=== PATIENT | male | born 2000 ===

== ENCOUNTER 2020-01-09 13:42 | Observation (INO) | payer SELFPAY ==
[2020-01-09] MEDS ORDERED: Sodium Chloride 0.9% 1,000 ML IV ONE ×2 (13:51→16:00)
[2020-01-09] MEDS ORDERED: Ondansetron 4 MG/2 ML SDV IVPUSH ONE (13:51)
--- NOTE | 2020-01-09 13:53 | EDM.PDOC ---
ED HPI GENERAL MEDICAL PROBLEM - General Chief Complaint: General Stated Complaint: vomiting, stiff neck Time Seen by Provider: 01/09/20 13:51 Source of Information: Reports: Patient History Limitations: Reports: No Limitations - History of Present Illness INITIAL COMMENTS - FREE TEXT/NARRATIVE: Ill since . Vomiting, no diarrhea. Unable to keep PO down. Weak. Slept on floor of bathroom last night. Whole body aches, including sore head/ neck. Unable to touch chin to chest. Father is worried about meningitis. Has been working despite his illness. Visiting/on work Visa from [facility]. head and neck Pain Score (Numeric/FACES): 11 - Related Data Allergies Allergy/AdvReac Type Severity Reaction Status Date / Time No Known Allergies Allergy Verified 01/09/20 13:47 Home Meds: Home Meds . [Unable to Verify Home Med List] 01/09/20 [History] Past Medical History Respiratory History: Reports: Asthma Social & Family History - Tobacco Use Tobacco Use Comment: Very rare cigarette smoker/socially - Caffeine Use Caffeine Use: Reports: Coffee - Alcohol Use Alcohol Use History: No - Recreational Drug Use Recreational Drug Use: No Drug Use in Last 12 Months: No ED ROS GENERAL - Review of Systems Review Of Systems: See Below Constitutional: Reports: Malaise, Weakness, Fatigue, Decreased Appetite. Denies : Fever, Night Sweats HEENT: Reports: No Symptoms Respiratory: Reports: No Symptoms Cardiovascular: Reports: No Symptoms GI/Abdominal: Reports: Decreased Appetite, Nausea, Vomiting. Denies: Abdominal Pain, Constipation, Diarrhea, Difficulty Swallowing, Distension, Hematemesis, Hematochezia : Reports: No Symptoms Musculoskeletal: Reports: Neck Pain, Muscle Pain (aches all over), Muscle Stiffness (neck). Denies: Joint Swelling Skin: Reports: No Symptoms Neurological: Reports: Headache. Denies: Confusion, Dizziness, Numbness, Paresthesia, Syncope, Tingling, Trouble Speaking, Difficulty Walking, Change in Speech, Gait Disturbance Psychiatric: Reports: No Symptoms Hematologic/Lymphatic: Reports: No Symptoms ED EXAM, GENERAL - Physical Exam Exam: See Below Exam Limited By: No Limitations General Appearance: Alert, WD/WN, No Apparent Distress, Other (appears fatigued) Eye Exam: Bilateral Eye: EOMI, PERRL Ears: Hearing Grossly Normal Nose: No: Nasal Deformity, Nasal Swelling, Nasal Drainage Throat/Mouth: Normal Lips, Normal Voice, No Airway Compromise Head: Atraumatic, Normocephalic Neck: Non-Tender, Other (able to turn head to either side, unable to tilt chin downward due to neck stiffness (bilaterally)/discomfort.). No: Lymphadenopathy (L), Lymphadenopathy (R) Respiratory/Chest: No Respiratory Distress, Lungs Clear, Normal Breath Sounds, No Accessory Muscle Use, Chest Non-Tender Cardiovascular: Normal Peripheral Pulses, Regular Rate, Rhythm, No Edema, No Murmur Peripheral Pulses: 2+: Radial (L), Radial (R) GI/Abdominal: Soft, Non-Tender, No Distention, Abnormal Bowel Sounds (decreased throughout) (Male) Exam: Deferred Rectal (Males) Exam: Deferred Back Exam: No: CVA Tenderness (L), CVA Tenderness (R), Muscle Spasm, Paraspinal Tenderness, Vertebral Tenderness Extremities: Normal Range of Motion, No Pedal Edema, Slow Capillary Refill (4 seconds). No: Joint Swelling, Increased Warmth, Mottled, Pallor, Redness Neurological: Alert, Oriented, CN II-XII Intact, Normal Cognition, Normal Gait, No Motor/Sensory Deficits Psychiatric: Normal Affect, Normal Mood Skin Exam: Warm, Dry, Intact, Normal Color Course - Vital Signs Last Recorded V/S: Last Vital Signs Temp 36.6 C 01/09/20 13:43 Pulse 80 01/09/20 13:43 Resp 18 01/09/20 13:43 BP 126/67 01/09/20 13:43 Pulse Ox 97 01/09/20 13:43 - Orders/Labs/Meds Orders: Active Orders 24 hr Category Date Time Status Sodium Chloride 0.9% [Saline Flush] Med 01/09/20 13:51 Ordered 10 ml FLUSH ASDIRECTED PRN Saline Lock Insert [OM.PC] Routine Oth 01/09/20 13:51 Ordered Medication Orders Sodium Chloride (Saline Flush) 10 ml FLUSH ASDIRECTED PRN PRN Reason: Keep Vein Open Last Admin: 01/09/20 14:24 Dose: 10 ml Labs: Laboratory Tests 01/09/20 01/09/20 01/09/20 Range/Units 14:20 14:20 14:20 WBC 5.5 (4.0-10.2) K/uL RBC 5.24 (4.33-5.41) M/uL Hgb 15.8 (13.1-16.8) g/dL Hct 45.8 (39.0-49.0) % MCV 87.4 (84.0-98.0) fL MCH 30.2 (28.2-33.3) pg MCHC 34.5 (31.7-36.0) g/dL RDW 12.9 (11.2-14.1) % Plt Count 251 (150-350) K/uL Neut % (Auto) 46.5 (45.0-80.0) % Lymph % (Auto) 36.2 (10.0-50.0) % [place] % (Auto) 13.2 (2.0-14.0) % Eos % (Auto) 3.6 (0.0-5.0) % Baso % (Auto) 0.5 (0.0-2.0) % Neut # (Auto) 2.57 (1.40-7.00) K/uL Lymph # (Auto) 2.00 (0.50-3.50) K/uL [place] # (Auto) 0.73 (0.00-1.00) K/uL Eos # (Auto) 0.20 (0.00-0.50) K/uL Baso # (Auto) 0.03 (0.00-0.20) K/uL Sodium 141 (136-145) mmol/L Potassium 3.9 (3.5-5.1) mmol/L Chloride 103 (98-107) mmol/L Carbon Dioxide 27.9 (21.0-32.0) mmol/L BUN 10 (7-18) mg/dL Creatinine 0.80 (0.51-1.17) mg/dL Est Cr Clr Drug Dosing 179.33 mL/min Estimated GFR (MDRD) > 60 mL/min Glucose 96 (74-106) mg/dL Lactic Acid (0.4-2.0) mmol/L Calcium 9.3 (8.5-10.1) mg/dL Magnesium 1.7 L (1.8-2.4) mg/dL Total Bilirubin 0.5 (0.2-1.0) mg/dL AST 24 (15-37) U/L ALT 36 (12-78) U/L Alkaline Phosphatase 99 (46-116) IU/L Total Protein 7.7 (6.4-8.2) g/dL Albumin 4.2 (3.4-5.0) g/dL Specimen Type Urinblad Urine Color Yellow Urine Appearance Clear Urine pH 6.0 (5.0-9.0) Ur Specific [place] 1.020 (1.005-1.030) Urine Protein 30 H (NEGATIVE) mg/dL Urine Glucose (UA) Negative (NEGATIVE) mg/dL Urine Ketones Trace H (NEGATIVE) mg/dL Urine Occult Blood Negative (NEGATIVE) Urine Nitrite Negative (NEGATIVE) Urine Bilirubin Moderate H (NEGATIVE) Urine Urobilinogen 0.2 (0.2-1.0) E.U./dL Ur Leukocyte Esterase Negative (NEGATIVE) Urine RBC Not seen /HPF Urine WBC Not seen /HPF Ur Epithelial Cells Rare /LPF Urine Bacteria Rare (NONE TO FEW) /HPF Urine Mucus Many H (NEGATIVE) /LPF Urine Yeast Few H (NEGATIVE) /HPF 01/09/20 Range/Units 14:20 WBC (4.0-10.2) K/uL RBC (4.33-5.41) M/uL Hgb (13.1-16.8) g/dL Hct (39.0-49.0) % MCV (84.0-98.0) fL MCH (28.2-33.3) pg MCHC (31.7-36.0) g/dL RDW (11.2-14.1) % Plt Count (150-350) K/uL Neut % (Auto) (45.0-80.0) % Lymph % (Auto) (10.0-50.0) % [place] % (Auto) (2.0-14.0) % Eos % (Auto) (0.0-5.0) % Baso % (Auto) (0.0-2.0) % Neut # (Auto) (1.40-7.00) K/uL Lymph # (Auto) (0.50-3.50) K/uL [place] # (Auto) (0.00-1.00) K/uL Eos # (Auto) (0.00-0.50) K/uL Baso # (Auto) (0.00-0.20) K/uL Sodium (136-145) mmol/L Potassium (3.5-5.1) mmol/L Chloride (98-107) mmol/L Carbon Dioxide (21.0-32.0) mmol/L BUN (7-18) mg/dL Creatinine (0.51-1.17) mg/dL Est Cr Clr Drug Dosing mL/min Estimated GFR (MDRD) mL/min Glucose (74-106) mg/dL Lactic Acid 1.2 (0.4-2.0) mmol/L Calcium (8.5-10.1) mg/dL Magnesium (1.8-2.4) mg/dL Total Bilirubin (0.2-1.0) mg/dL AST (15-37) U/L ALT (12-78) U/L Alkaline Phosphatase (46-116) IU/L Total Protein (6.4-8.2) g/dL Albumin (3.4-5.0) g/dL Specimen Type Urine Color Urine Appearance Urine pH (5.0-9.0) Ur Specific [place] (1.005-1.030) Urine Protein (NEGATIVE) mg/dL Urine Glucose (UA) (NEGATIVE) mg/dL Urine Ketones (NEGATIVE) mg/dL Urine Occult Blood (NEGATIVE) Urine Nitrite (NEGATIVE) Urine Bilirubin (NEGATIVE) Urine Urobilinogen (0.2-1.0) E.U./dL Ur Leukocyte Esterase (NEGATIVE) Urine RBC /HPF Urine WBC /HPF Ur Epithelial Cells /LPF Urine Bacteria (NONE TO FEW) /HPF Urine Mucus (NEGATIVE) /LPF Urine Yeast (NEGATIVE) /HPF Meds: Medications Generic Name Dose Route Start Last Admin Trade Name Freq PRN Reason Stop Dose Admin Sodium Chloride 10 ml 01/09/20 13:51 01/09/20 14:24 Saline Flush FLUSH 10 ml ASDIRECTED PRN Administration Keep Vein Open Discontinued Medications Generic Name Dose Route Start Last Admin Trade Name Freq PRN Reason Stop Dose Admin Sodium Chloride 1,000 mls @ 999 mls/hr 01/09/20 13:51 01/09/20 14:24 Normal Saline IV 01/09/20 14:51 999 mls/hr .BOLUS ONE Administration Ketorolac Tromethamine 30 mg 01/09/20 14:34 01/09/20 14:38 Toradol IVPUSH 01/09/20 14:35 30 mg ONETIME ONE Administration Ondansetron HCl 4 mg 01/09/20 13:51 01/09/20 14:24 Zofran IVPUSH 01/09/20 13:52 4 mg ONETIME ONE Administration - Re-Assessments/Exams Free Text/Narrative Re-Assessment/Exam: Discussed patient's neck stiffness with from [facility]. Given lack of fever/lack of white count elevation/normal lactic acid does not appear to be consistent with bacterial meningitis. Overall labs unremarkable except for low Mg. Patient is dehydrated by exam. Will admit for IV hydration and continued observation given the neck stiffness and continued emesis. Departure - Departure Time of Disposition: 14:51 Disposition: Refer to Observation Condition: Good Clinical Impression: Dehydration, Gastroenteritis, Hypomagnesemia - Discharge Information *PRESCRIPTION DRUG MONITORING PROGRAM REVIEWED*: Not Applicable *COPY OF PRESCRIPTION DRUG MONITORING REPORT IN PATIENT CAREY: Not Applicable Forms: ED Department Discharge Sepsis Event Note - Evaluation Sepsis Screening Result: No Definite Risk - Focused Exam Vital Signs: Vital Signs Temp Pulse Resp BP Pulse Ox 01/09/20 13:43 36.6 C 80 18 126/67 97 Date Exam was Performed: 01/09/20 Time Exam was Performed: 14:51 - Problem List & Annotations (1) Dehydration SNOMED Code(s): 68469435 Code(s): E86.0 - DEHYDRATION Status: Acute Priority: High Current Visit : Yes Onset Date: ~01/09/20 Annotation/Comment:: 3 day history of emesis. Unable to keep fluid/food down. Delayed capillary refill. Admit for IV rehydration. (2) Gastroenteritis SNOMED Code(s): 43178758 Code(s): K52.9 - NONINFECTIVE GASTROENTERITIS AND COLITIS, UNSPECIFIED Status: Acute Priority: High Current Visit: Yes Onset Date: 01/07/20 Annotation/Comment:: Unable to keep fluid/food down well over last three days. Dehydrated. No one else sick at work. No bowel changes. Normal WBC. Admit OBS for IV fluid/Zofran. (3) Hypomagnesemia SNOMED Code(s): 253214555 Code(s): E83.42 - HYPOMAGNESEMIA Status: Acute Priority: Medium Current Visit: Yes Annotation/Comment:: Uncertain if acute or chronic. Will give supplementary Mag and recheck level in AM. (4) Stiff neck SNOMED Code(s): 327377731 Code(s): M43.6 - TORTICOLLIS Status: Acute Priority: Medium Current Visit: Yes Annotation/Comment:: Patient unable to touch chin to chest due to stiff neck. Afebrile. Normal WBC. Normal lactic acid. Interacts normally, no acute neuro changes. Discussed with at [facility]. Does not appear consistent with bacterial meningitis. Will admit observation and continue to observe for changes. (5) Asthma SNOMED Code(s): 978856654 Code(s): J45.909 - UNSPECIFIED ASTHMA, UNCOMPLICATED Status: Chronic Priority: Low Current Visit: No Annotation/Comment:: Under good control at this time Qualifiers: Asthma severity: mild Asthma complication type: uncomplicated - Problem List Review Problem List Initiated/Reviewed/Updated: Yes - My Orders Last 24 Hours: My Active Orders 01/09/20 13:51 Sodium Chloride 0.9% [Saline Flush] 10 ml FLUSH ASDIRECTED PRN Saline Lock Insert [OM.PC] Routine - Assessment/Plan Admission H&P: Please use this note as an admission H&P Last 24 Hours: My Active Orders 01/09/20 13:51 Sodium Chloride 0.9% [Saline Flush] 10 ml FLUSH ASDIRECTED PRN Saline Lock Insert [OM.PC] Routine Assessment:: as above Plan: IV hydration, Zofran. Continue to observe for changes and re-evaluate neck stiffness complaint over stay. Does not appear consistent with bacterial meningitis but if worsens may need lumbar puncture to formally rule out possibility. If this is consistent with viral gastroenteritis and patient improves well with rehydration anticipate 1-2 day stay as Observation patient. Patient stable and suitable for general supervision.
[2020-01-09] MEDS: Sodium Chloride 0.9% 10 ML Syringe FLUSH PRN ×2 (14:24→18:11)
[2020-01-09] MEDS ORDERED: Ketorolac 30 MG/ML SDV IVPUSH ONE (14:34)
[2020-01-09 14:40] LABS: CHLORIDE,CL 103 mmol/L (98-107); SODIUM,NA 141 mmol/L (136-145)
[2020-01-09] MEDS ORDERED: Ondansetron 4 MG/2 ML SDV IVPUSH PRN (15:08)
[2020-01-09] MEDS ORDERED: Ketorolac 30 MG/ML SDV IM PRN (15:08)
[2020-01-09] MEDS ORDERED: Ketorolac 30 MG/ML SDV IVPUSH PRN (15:12)
[2020-01-09] MEDS ORDERED: Diazepam 5 MG Tab PO ONE (15:14)
[2020-01-09] MEDS: Sodium Chloride 0.9% 1,000 ML IV SCH (17:02)
[2020-01-09] MEDS ORDERED: Morphine 2 MG/ML Syringe IVPUSH PRN (17:49)
[2020-01-10] MEDS: Sodium Chloride 0.9% 1,000 ML IV SCH ×5 (00:07→20:03)
[2020-01-10] MEDS ORDERED: Diazepam 5 MG Tab PO ONE (06:00)
[2020-01-10 07:53] LABS: CHLORIDE,CL 107 mmol/L (98-107); SODIUM,NA 142 mmol/L (136-145)
[2020-01-10] MEDS: Sodium Chloride 0.9% 10 ML Syringe FLUSH PRN (09:24)
[2020-01-10] MEDS ORDERED: Sodium Chloride 0.9% 1,000 ML IV ONE ×2 (11:01→13:43)
--- NOTE | 2020-01-10 11:41 | PCM.PN ---
- General Info Date of Service: 01/10/20 Admission Dx/Problem (Free Text): Patient admitted for treatment of dehydration, emesis, and headache. Subjective Update: Patient still has headache but can now lay flat comfortably. Emesis resolved on Zofran. Feels hungry. Diet advanced today and was able to eat regular diet. Functional Status: Reports: Tolerating Diet, Ambulating, Urinating. Denies: New Symptoms Pain Score: 7 (Patient does not currently wish to have any additional pain medication at time of rounding) - Review of Systems General: Reports: Fatigue, Malaise, Appetite (good). Denies: Fever, Chills, Night Sweats HEENT: Reports: Headaches. Denies: Dysphasia, Ear Pain, Eye Pain, Sinus Congestion, Sore Throat, Rhinitis, Visual Changes Pulmonary: Reports: No Symptoms Cardiovascular: Reports: No Symptoms Gastrointestinal: Reports: No Symptoms, Other (nausea/emesis improved with Zofran) Genitourinary: Reports: No Symptoms Musculoskeletal: Reports: Neck Pain, Other (diffuse body aches) Skin: Reports: No Symptoms. Denies: Rash Neurological: Reports: Headache. Denies: Confusion, Numbness, Paresthesia, Seizure, Syncope, Tingling, Tremors, Trouble Speaking, Difficulty Walking, Weakness, Change in Speech, Gait Disturbance Psychiatric: Reports: No Symptoms - Patient Data Vitals - Most Recent: Last Vital Signs Temp 36.4 C 01/10/20 11:04 Pulse 60 01/10/20 11:04 Resp 18 01/10/20 11:04 BP 101/51 L 01/10/20 11:04 Pulse Ox 98 01/10/20 11:04 Weight - Most Recent: 102.058 kg I&O - Last 24 Hours: Intake & Output 01/09/20 01/10/20 01/10/20 22:59 06:59 14:59 Intake Total 2512 2200 720 Output Total 700 Balance 2512 1500 720 Lab Results Last 24 Hours: Laboratory Results - last 24 hr 01/09/20 01/09/20 01/09/20 Range/Units 14:20 14:20 14:20 WBC 5.5 (4.0-10.2) K/uL RBC 5.24 (4.33-5.41) M/uL Hgb 15.8 (13.1-16.8) g/dL Hct 45.8 (39.0-49.0) % MCV 87.4 (84.0-98.0) fL MCH 30.2 (28.2-33.3) pg MCHC 34.5 (31.7-36.0) g/dL RDW 12.9 (11.2-14.1) % Plt Count 251 (150-350) K/uL Neut % (Auto) 46.5 (45.0-80.0) % Lymph % (Auto) 36.2 (10.0-50.0) % [place] % (Auto) 13.2 (2.0-14.0) % Eos % (Auto) 3.6 (0.0-5.0) % Baso % (Auto) 0.5 (0.0-2.0) % Neut # (Auto) 2.57 (1.40-7.00) K/uL Lymph # (Auto) 2.00 (0.50-3.50) K/uL [place] # (Auto) 0.73 (0.00-1.00) K/uL Eos # (Auto) 0.20 (0.00-0.50) K/uL Baso # (Auto) 0.03 (0.00-0.20) K/uL Sodium 141 (136-145) mmol/L Potassium 3.9 (3.5-5.1) mmol/L Chloride 103 (98-107) mmol/L Carbon Dioxide 27.9 (21.0-32.0) mmol/L BUN 10 (7-18) mg/dL Creatinine 0.80 (0.51-1.17) mg/dL Est Cr Clr Drug Dosing 179.33 mL/min Estimated GFR (MDRD) > 60 mL/min Glucose 96 (74-106) mg/dL Lactic Acid (0.4-2.0) mmol/L Calcium 9.3 (8.5-10.1) mg/dL Magnesium 1.7 L (1.8-2.4) mg/dL Total Bilirubin 0.5 (0.2-1.0) mg/dL AST 24 (15-37) U/L ALT 36 (12-78) U/L Alkaline Phosphatase 99 (46-116) IU/L Total Protein 7.7 (6.4-8.2) g/dL Albumin 4.2 (3.4-5.0) g/dL Specimen Type Urinblad Urine Color Yellow Urine Appearance Clear Urine pH 6.0 (5.0-9.0) Ur Specific [place] 1.020 (1.005-1.030) Urine Protein 30 H (NEGATIVE) mg/dL Urine Glucose (UA) Negative (NEGATIVE) mg/dL Urine Ketones Trace H (NEGATIVE) mg/dL Urine Occult Blood Negative (NEGATIVE) Urine Nitrite Negative (NEGATIVE) Urine Bilirubin Moderate H (NEGATIVE) Urine Urobilinogen 0.2 (0.2-1.0) E.U./dL Ur Leukocyte Esterase Negative (NEGATIVE) Urine RBC Not seen /HPF Urine WBC Not seen /HPF Ur Epithelial Cells Rare /LPF Urine Bacteria Rare (NONE TO FEW) /HPF Urine Mucus Many H (NEGATIVE) /LPF Urine Yeast Few H (NEGATIVE) /HPF 01/09/20 01/10/20 01/10/20 Range/Units 14:20 07:25 07:25 WBC (4.0-10.2) K/uL RBC (4.33-5.41) M/uL Hgb (13.1-16.8) g/dL Hct (39.0-49.0) % MCV (84.0-98.0) fL MCH (28.2-33.3) pg MCHC (31.7-36.0) g/dL RDW (11.2-14.1) % Plt Count (150-350) K/uL Neut % (Auto) (45.0-80.0) % Lymph % (Auto) (10.0-50.0) % [place] % (Auto) (2.0-14.0) % Eos % (Auto) (0.0-5.0) % Baso % (Auto) (0.0-2.0) % Neut # (Auto) (1.40-7.00) K/uL Lymph # (Auto) (0.50-3.50) K/uL [place] # (Auto) (0.00-1.00) K/uL Eos # (Auto) (0.00-0.50) K/uL Baso # (Auto) (0.00-0.20) K/uL Sodium 142 (136-145) mmol/L Potassium 4.4 (3.5-5.1) mmol/L Chloride 107 (98-107) mmol/L Carbon Dioxide 27.4 (21.0-32.0) mmol/L BUN 12 (7-18) mg/dL Creatinine 0.77 (0.51-1.17) mg/dL Est Cr Clr Drug Dosing 186.31 mL/min Estimated GFR (MDRD) > 60 mL/min Glucose 118 H (74-106) mg/dL Lactic Acid 1.2 1.2 (0.4-2.0) mmol/L Calcium 8.3 L (8.5-10.1) mg/dL Magnesium 2.0 (1.8-2.4) mg/dL Total Bilirubin (0.2-1.0) mg/dL AST (15-37) U/L ALT (12-78) U/L Alkaline Phosphatase (46-116) IU/L Total Protein (6.4-8.2) g/dL Albumin (3.4-5.0) g/dL Specimen Type Urine Color Urine Appearance Urine pH (5.0-9.0) Ur Specific [place] (1.005-1.030) Urine Protein (NEGATIVE) mg/dL Urine Glucose (UA) (NEGATIVE) mg/dL Urine Ketones (NEGATIVE) mg/dL Urine Occult Blood (NEGATIVE) Urine Nitrite (NEGATIVE) Urine Bilirubin (NEGATIVE) Urine Urobilinogen (0.2-1.0) E.U./dL Ur Leukocyte Esterase (NEGATIVE) Urine RBC /HPF Urine WBC /HPF Ur Epithelial Cells /LPF Urine Bacteria (NONE TO FEW) /HPF Urine Mucus (NEGATIVE) /LPF Urine Yeast (NEGATIVE) /HPF 01/10/20 Range/Units 07:25 WBC 4.4 (4.0-10.2) K/uL RBC 4.52 (4.33-5.41) M/uL Hgb 13.4 D (13.1-16.8) g/dL Hct 41.2 (39.0-49.0) % MCV 91.2 D (84.0-98.0) fL MCH 29.6 (28.2-33.3) pg MCHC 32.5 (31.7-36.0) g/dL RDW 13.1 (11.2-14.1) % Plt Count 188 (150-350) K/uL Neut % (Auto) 45.4 (45.0-80.0) % Lymph % (Auto) 37.2 (10.0-50.0) % [place] % (Auto) 10.8 (2.0-14.0) % Eos % (Auto) 6.1 H (0.0-5.0) % Baso % (Auto) 0.5 (0.0-2.0) % Neut # (Auto) 2.02 (1.40-7.00) K/uL Lymph # (Auto) 1.65 (0.50-3.50) K/uL [place] # (Auto) 0.48 (0.00-1.00) K/uL Eos # (Auto) 0.27 (0.00-0.50) K/uL Baso # (Auto) 0.02 (0.00-0.20) K/uL Sodium (136-145) mmol/L Potassium (3.5-5.1) mmol/L Chloride (98-107) mmol/L Carbon Dioxide (21.0-32.0) mmol/L BUN (7-18) mg/dL Creatinine (0.51-1.17) mg/dL Est Cr Clr Drug Dosing mL/min Estimated GFR (MDRD) mL/min Glucose (74-106) mg/dL Lactic Acid (0.4-2.0) mmol/L Calcium (8.5-10.1) mg/dL Magnesium (1.8-2.4) mg/dL Total Bilirubin (0.2-1.0) mg/dL AST (15-37) U/L ALT (12-78) U/L Alkaline Phosphatase (46-116) IU/L Total Protein (6.4-8.2) g/dL Albumin (3.4-5.0) g/dL Specimen Type Urine Color Urine Appearance Urine pH (5.0-9.0) Ur Specific [place] (1.005-1.030) Urine Protein (NEGATIVE) mg/dL Urine Glucose (UA) (NEGATIVE) mg/dL Urine Ketones (NEGATIVE) mg/dL Urine Occult Blood (NEGATIVE) Urine Nitrite (NEGATIVE) Urine Bilirubin (NEGATIVE) Urine Urobilinogen (0.2-1.0) E.U./dL Ur Leukocyte Esterase (NEGATIVE) Urine RBC /HPF Urine WBC /HPF Ur Epithelial Cells /LPF Urine Bacteria (NONE TO FEW) /HPF Urine Mucus (NEGATIVE) /LPF Urine Yeast (NEGATIVE) /HPF Med Orders - Current: Current Medications Sodium Chloride (Normal Saline) 1,000 mls @ 150 mls/hr IV ASDIRECTED TABITHA Last Admin: 01/10/20 06:09 Dose: 150 mls/hr Sodium Chloride (Normal Saline) 1,000 mls @ 999 mls/hr IV .BOLUS ONE Stop: 01/10/20 12:01 Last Admin: 01/10/20 11:24 Dose: 999 mls/hr Ketorolac Tromethamine (Toradol) 30 mg IVPUSH Q6H PRN PRN Reason: Pain (moderate 4-6) Last Admin: 01/10/20 06:13 Dose: 30 mg Morphine Sulfate (Morphine) 2 mg IVPUSH Q2H PRN PRN Reason: Pain Last Admin: 01/10/20 09:23 Dose: 2 mg Ondansetron HCl (Zofran) 4 mg IVPUSH Q6H PRN PRN Reason: Nausea/Vomiting Sodium Chloride (Saline Flush) 10 ml FLUSH ASDIRECTED PRN PRN Reason: Keep Vein Open Last Admin: 01/10/20 09:24 Dose: 10 ml Discontinued Medications Diazepam (Valium.) 5 mg PO ONETIME ONE Stop: 01/09/20 15:15 Last Admin: 01/09/20 15:52 Dose: 5 mg Diazepam (Valium.) 5 mg PO ONETIME ONE Stop: 01/10/20 06:01 Last Admin: 01/10/20 06:13 Dose: 5 mg Sodium Chloride (Normal Saline) 1,000 mls @ 999 mls/hr IV .BOLUS ONE Stop: 01/09/20 14:51 Last Admin: 01/09/20 14:24 Dose: 999 mls/hr Magnesium Sulfate/Dextrose 1 (gm/ Premix) 100 mls @ 100 mls/hr IV ONETIME ONE Stop: 01/09/20 16:09 Last Admin: 01/09/20 15:52 Dose: 100 mls/hr Sodium Chloride (Normal Saline) 1,000 mls @ 999 mls/hr IV .BOLUS ONE Stop: 01/09/20 17:00 Last Admin: 02/22/20 15:51 Dose: 999 mls/hr Magnesium Sulfate/Dextrose 1 (gm/ Premix) 100 mls @ 100 mls/hr IV ONETIME ONE Stop: 01/09/20 22:59 Last Admin: 01/09/20 22:06 Dose: 100 mls/hr Ketorolac Tromethamine (Toradol) 30 mg IVPUSH ONETIME ONE Stop: 01/09/20 14:35 Last Admin: 01/09/20 14:38 Dose: 30 mg Ketorolac Tromethamine (Toradol) 30 mg IM Q6H PRN PRN Reason: Pain (moderate 4-6) Morphine Sulfate (Morphine) 4 mg IVPUSH ONETIME ONE Stop: 01/09/20 17:48 Last Admin: 01/09/20 18:11 Dose: 4 mg Ondansetron HCl (Zofran) 4 mg IVPUSH ONETIME ONE Stop: 01/09/20 13:52 Last Admin: 01/09/20 14:24 Dose: 4 mg - Exam General: Alert, Oriented, Cooperative, No Acute Distress HEENT: Pupils Equal, Pupils Reactive, EOMI, Mucous Membr. Moist/[place] Neck: Supple Lungs: Clear to Auscultation, Normal Respiratory Effort Cardiovascular: Regular Rate, Regular Rhythm GI/Abdominal Exam: Normal Bowel Sounds, Soft, Non-Tender, No Distention (Male) Exam: Deferred Back Exam: Normal Inspection. No: CVA Tenderness (L), CVA Tenderness (R), Muscle Spasm, Paraspinal Tenderness, Vertebral Tenderness Extremities: Normal Range of Motion, No Pedal Edema, Other (cap refill 3 sec) Peripheral Pulses: 2+: Radial (L), Radial (R) Skin: Warm, Dry. No: Rash Neurological: No New Focal Deficit Psy/Mental Status: Alert, Normal Affect, Normal Mood Sepsis Event Note - Evaluation Sepsis Screening Result: No Definite Risk - Focused Exam Vital Signs: Vital Signs Temp Pulse Resp BP Pulse Ox 01/10/20 11:04 36.4 C 60 18 101/51 L 98 01/10/20 07:44 36.5 C 54 L 16 119/68 100 01/10/20 06:00 36.4 C 54 L 16 110/59 L 98 01/10/20 00:00 36.3 C 60 16 98/56 L 96 Date Exam was Performed: 01/10/20 Time Exam was Performed: 11:41 - Problem List & Annotations (1) Nausea & vomiting SNOMED Code(s): 85061587 Code(s): R11.2 - NAUSEA WITH VOMITING, UNSPECIFIED Status: Acute Priority : High Current Visit: Yes Onset Date: 01/07/20 Qualifiers: Vomiting type: unspecified Vomiting Intractability: non-intractable Qualified Code(s): R11.2 - Nausea with vomiting, unspecified Annotation/Comment:: Patient presented on day three of continued nausea/emesis. Unable to keep PO down. Accompanied by body aches/headache/neck pain. No bowel changes. No fevers. Normal WBC and lactic acid. Suspect viral etiology as being most likely cause however head CT ordered today to help rule out intracranial abnormalities. (2) Dehydration SNOMED Code(s): 21388177 Code(s): E86.0 - DEHYDRATION Status: Acute Priority: High Current Visit : Yes Onset Date: ~01/09/20 Annotation/Comment:: 3 day history of emesis. Unable to keep fluid/food down. Delayed capillary refill in ER. Admitted for IV rehydration. Has had only 700ml out since admission despite 2 liter bolus and ongoing fluids. Is taking PO fluids/food now. Will give additional IV fluids and monitor output. (3) Hypomagnesemia SNOMED Code(s): 228715189 Code(s): E83.42 - HYPOMAGNESEMIA Status: Acute Priority: Medium Current Visit: Yes Annotation/Comment:: Improved today. Will continue supplementation as IV fluids will dilute Mg level. (4) Stiff neck SNOMED Code(s): 506393792 Code(s): M43.6 - TORTICOLLIS Status: Acute Priority: High Current Visit : Yes Annotation/Comment:: Patient unable to touch chin to chest due to stiff and painful neck. Afebrile. Normal WBC. Normal lactic acid. Interacts normally, no acute neuro changes. Discussed with at [facility]. Does not appear consistent with bacterial meningitis. Headache/neck pain continues today. No acute changes noted. Will obtain CT scan to rule out intracranial changes that may be contributing to pain/emesis complaint. (5) Asthma SNOMED Code(s): 924476198 Code(s): J45.909 - UNSPECIFIED ASTHMA, UNCOMPLICATED Status: Chronic Priority: Low Current Visit: No Qualifiers: Asthma severity: mild Asthma complication type: uncomplicated Annotation/Comment:: Under good control at this time - Problem List Review Problem List Initiated/Reviewed/Updated: Yes - My Orders Last 24 Hours: My Active Orders 01/09/20 13:51 Sodium Chloride 0.9% [Saline Flush] 10 ml FLUSH ASDIRECTED PRN Saline Lock Insert [OM.PC] Routine 01/09/20 15:08 Patient Status [ADT] Routine Oxygen Therapy [RC] .PRN Up ad Sol [RC] ASDIRECTED VTE/DVT Education [RC] PER UNIT ROUTINE Vital Signs [RC] Q6HR Ondansetron [Zofran] 4 mg IVPUSH Q6H PRN Resuscitation Status Routine 01/09/20 15:09 Pulse Oximetry [RC] PRN 01/09/20 15:12 Ketorolac [Toradol] 30 mg IVPUSH Q6H PRN 01/09/20 15:13 Communication Order [RC] ROUTINE 01/09/20 17:49 Morphine 2 mg IVPUSH Q2H PRN 01/09/20 18:00 Sodium Chloride 0.9% [Normal Saline] 1,000 ml IV ASDIRECTED 01/10/20 11:01 Sodium Chloride 0.9% [Normal Saline] 1,000 ml IV .BOLUS 01/10/20 11:10 Head wo Cont [CT] Routine 01/10/20 Lunch Regular Diet [DIET] - Assessment Assessment:: as above. Presentation does not appear consistent with bacterial meningitis, however continued head/neck discomfort, exam, and workup suggestive of viral meningitis. - Plan Plan:: as above. CT of head to be performed. Continue IV fluids/pain management. Consult with [facility] depending on CT results. If CT results negative and patient improves over the next 24 hours consider discharge home with close follow up by clinic. to assume patient's care tonight.
--- NOTE | 2020-01-10 12:57 | PCM.SN ---
- Free Text/Narrative Note: Head CT unremarkable per Radiology. Recheck of patient shows improved ability to move neck, now can almost touch chin to chest. Posterior neck muscles bilaterally are sore. Palpation reproduces pain complaint. Continue rehydration and observe for additional changes.
[2020-01-10] MEDS ORDERED: predniSONE 20 MG Tab PO ONE (13:41)
[2020-01-10] MEDS ORDERED: Cyclobenzaprine 10 MG Tab PO ONE ×2 (13:42→23:00)
[2020-01-10] MEDS ORDERED: traMADol 50 MG Tab PO PRN (13:44)
[2020-01-10] MEDS ORDERED: Acetaminophen 500 MG Tab PO PRN (13:45)
--- NOTE | 2020-01-10 13:48 | PCM.SN ---
- Free Text/Narrative Note: Discussed patient and current treatment plan with , prn occupational therapist hospitalist from [facility]. She is in agreement with current plan and feels that patient's symptoms are consistent with viral etiology. If patient spikes fever/shows sudden worsening plan will be to send him to [facility] for further workup and lumbar puncture.
[2020-01-11] MEDS: Sodium Chloride 0.9% 1,000 ML IV SCH (02:45)
[2020-01-11 08:37] LABS: CHLORIDE,CL 107 mmol/L (98-107); SODIUM,NA 143 mmol/L (136-145)
--- NOTE | 2020-01-11 10:16 | PCM.DCSUM1 ---
Discharge Summary - Hospital Course Free Text/Narrative:: Pt was admitted initially with N/V/D Pt given antiemetics and IVF's Pt has progressed well Is able to tolerate diet currently No fever No abdominal pain Did have mild pain in his neck that has improved HPI Initial Comments: Pt admitted with N/V/D Diagnosis: Stroke: No - Discharge Data Discharge Date: 01/11/20 Discharge Disposition: Home, Self-Care 01 Condition: Good - Referral to Home Health Primary Care Physician: PCP None - Discharge Diagnosis/Problem(s) (1) Dehydration SNOMED Code(s): 36025489 ICD Code: E86.0 - DEHYDRATION Status: Acute Priority: High Current Visit: Yes Onset Date: ~01/09/20 Problem Details: 3 day history of emesis. Unable to keep fluid/food down. Delayed capillary refill in ER. Admitted for IV rehydration. Has had only 700ml out since admission despite 2 liter bolus and ongoing fluids. Is taking PO fluids/food now. Will give additional IV fluids and monitor output. (2) Nausea & vomiting SNOMED Code(s): 10302286 ICD Code: R11.2 - NAUSEA WITH VOMITING, UNSPECIFIED Status: Acute Priority: High Current Visit: Yes Onset Date: 01/07/20 Problem Details: Patient presented on day three of continued nausea/emesis. Unable to keep PO down. Accompanied by body aches/headache/neck pain. No bowel changes. No fevers. Normal WBC and lactic acid. Suspect viral etiology as being most likely cause however head CT ordered today to help rule out intracranial abnormalities. Qualifiers: Vomiting type: unspecified Vomiting Intractability: non-intractable Qualified Code(s): R11.2 - Nausea with vomiting, unspecified (3) Stiff neck SNOMED Code(s): 307037397 ICD Code: M43.6 - TORTICOLLIS Status: Acute Priority: High Current Visit: Yes Problem Details: Patient unable to touch chin to chest due to stiff and painful neck. Afebrile. Normal WBC. Normal lactic acid. Interacts normally, no acute neuro changes. Discussed with at [facility]. Does not appear consistent with bacterial meningitis. Headache/neck pain continues today. No acute changes noted. Will obtain CT scan to rule out intracranial changes that may be contributing to pain/emesis complaint. - Patient Summary/Data Hospital Course: Pt has progressed well Symptoms have improved Pt afebrile and able to tolerate regular diet - Patient Instructions Diet: Usual Diet as Tolerated Activity: As Tolerated Driving: May Drive Today Showering/Bathing: May Shower Notify Provider of: Fever, Increased Pain, Nausea and/or Vomiting - Discharge Plan *PRESCRIPTION DRUG MONITORING PROGRAM REVIEWED*: Not Applicable *COPY OF PRESCRIPTION DRUG MONITORING REPORT IN PATIENT CAREY: Not Applicable Home Medications: Home Meds . [Unable to Verify Home Med List] 01/09/20 [History] Forms: ED Department Discharge, ED Return to Work/School Form Referrals: PCP,None [Primary Care Provider] - - Discharge Summary/Plan Comment DC Time >30 min.: No - Patient Data Vitals - Most Recent: Last Vital Signs Temp 97.2 F 01/11/20 08:00 Pulse 64 01/11/20 08:00 Resp 17 01/11/20 08:00 BP 99/60 01/11/20 08:00 Pulse Ox 100 01/11/20 08:00 Weight - Most Recent: 225 lb I&O - Last 24 hours: Intake & Output 01/10/20 01/11/20 01/11/20 18:59 02:59 10:59 Intake Total 5599 2483 Output Total 1600 2700 1825 Balance 3999 -2700 658 Lab Results - Last 24 hrs: Laboratory Results - last 24 hr 01/11/20 01/11/20 Range/Units 07:35 07:35 WBC 10.5 H (4.0-10.2) K/uL RBC 4.90 (4.33-5.41) M/uL Hgb 14.6 (13.1-16.8) g/dL Hct 43.9 (39.0-49.0) % MCV 89.6 (84.0-98.0) fL MCH 29.8 (28.2-33.3) pg MCHC 33.3 (31.7-36.0) g/dL RDW 12.8 (11.2-14.1) % Plt Count 225 (150-350) K/uL Neut % (Auto) 76.3 (45.0-80.0) % Lymph % (Auto) 15.4 (10.0-50.0) % [place] % (Auto) 7.9 (2.0-14.0) % Eos % (Auto) 0.3 (0.0-5.0) % Baso % (Auto) 0.1 (0.0-2.0) % Neut # (Auto) 8.05 H (1.40-7.00) K/uL Lymph # (Auto) 1.62 (0.50-3.50) K/uL [place] # (Auto) 0.83 (0.00-1.00) K/uL Eos # (Auto) 0.03 (0.00-0.50) K/uL Baso # (Auto) 0.01 (0.00-0.20) K/uL Sodium 143 (136-145) mmol/L Potassium 3.9 (3.5-5.1) mmol/L Chloride 107 (98-107) mmol/L Carbon Dioxide 27.2 (21.0-32.0) mmol/L BUN 8 (7-18) mg/dL Creatinine 0.60 (0.51-1.17) mg/dL Est Cr Clr Drug Dosing 239.10 mL/min Estimated GFR (MDRD) > 60 mL/min Glucose 98 (74-106) mg/dL Calcium 8.7 (8.5-10.1) mg/dL Total Bilirubin 0.3 (0.2-1.0) mg/dL AST 18 (15-37) U/L ALT 32 (12-78) U/L Alkaline Phosphatase 87 (46-116) IU/L Total Protein 6.5 (6.4-8.2) g/dL Albumin 3.3 L (3.4-5.0) g/dL Med Orders - Current: Current Medications Acetaminophen (Tylenol Extra Strength) 1,000 mg PO Q6H PRN PRN Reason: Pain (mild 1-3) Sodium Chloride (Normal Saline) 1,000 mls @ 150 mls/hr IV ASDIRECTED TABITHA Last Admin: 01/11/20 02:45 Dose: 150 mls/hr Ketorolac Tromethamine (Toradol) 30 mg IVPUSH Q6H PRN PRN Reason: Pain (moderate 4-6) Last Admin: 01/10/20 06:13 Dose: 30 mg Morphine Sulfate (Morphine) 2 mg IVPUSH Q2H PRN PRN Reason: Pain Last Admin: 01/10/20 09:23 Dose: 2 mg Ondansetron HCl (Zofran) 4 mg IVPUSH Q6H PRN PRN Reason: Nausea/Vomiting Sodium Chloride (Saline Flush) 10 ml FLUSH ASDIRECTED PRN PRN Reason: Keep Vein Open Last Admin: 01/10/20 09:24 Dose: 10 ml Tramadol HCl (Ultram) 50 mg PO Q6H PRN PRN Reason: Pain (moderate 4-6) Last Admin: 01/11/20 06:19 Dose: 50 mg Discontinued Medications Cyclobenzaprine HCl (Flexeril) 10 mg PO ONETIME ONE Stop: 01/10/20 13:43 Last Admin: 01/10/20 14:13 Dose: 10 mg Cyclobenzaprine HCl (Flexeril) 10 mg PO ONETIME ONE Stop: 01/10/20 23:01 Last Admin: 01/10/20 23:08 Dose: 10 mg Diazepam (Valium.) 5 mg PO ONETIME ONE Stop: 01/09/20 15:15 Last Admin: 01/09/20 15:52 Dose: 5 mg Diazepam (Valium.) 5 mg PO ONETIME ONE Stop: 01/10/20 06:01 Last Admin: 01/10/20 06:13 Dose: 5 mg Sodium Chloride (Normal Saline) 1,000 mls @ 999 mls/hr IV .BOLUS ONE Stop: 01/09/20 14:51 Last Admin: 01/09/20 14:24 Dose: 999 mls/hr Magnesium Sulfate/Dextrose 1 (gm/ Premix) 100 mls @ 100 mls/hr IV ONETIME ONE Stop: 01/09/20 16:09 Last Admin: 01/09/20 15:52 Dose: 100 mls/hr Sodium Chloride (Normal Saline) 1,000 mls @ 999 mls/hr IV .BOLUS ONE Stop: 01/09/20 17:00 Last Admin: 01/09/20 15:51 Dose: 999 mls/hr Magnesium Sulfate/Dextrose 1 (gm/ Premix) 100 mls @ 100 mls/hr IV ONETIME ONE Stop: 01/09/20 22:59 Last Admin: 01/09/20 22:06 Dose: 100 mls/hr Sodium Chloride (Normal Saline) 1,000 mls @ 999 mls/hr IV .BOLUS ONE Stop: 01/10/20 12:01 Last Admin: 01/10/20 11:24 Dose: 999 mls/hr Sodium Chloride (Normal Saline) 1,000 mls @ 999 mls/hr IV .BOLUS ONE Stop: 01/10/20 14:43 Last Admin: 01/10/20 14:13 Dose: 999 mls/hr Ketorolac Tromethamine (Toradol) 30 mg IVPUSH ONETIME ONE Stop: 01/09/20 14:35 Last Admin: 01/09/20 14:38 Dose: 30 mg Ketorolac Tromethamine (Toradol) 30 mg IM Q6H PRN PRN Reason: Pain (moderate 4-6) Morphine Sulfate (Morphine) 4 mg IVPUSH ONETIME ONE Stop: 01/09/20 17:48 Last Admin: 01/09/20 18:11 Dose: 4 mg Ondansetron HCl (Zofran) 4 mg IVPUSH ONETIME ONE Stop: 01/09/20 13:52 Last Admin: 01/09/20 14:24 Dose: 4 mg Prednisone (Prednisone) 40 mg PO ONETIME ONE Stop: 01/10/20 13:42 Last Admin: 01/10/20 14:13 Dose: 40 mg
== END 2020-01-11 12:10 | disposition home or self-care (01) ==
LOC: LL.ED 13:42 → LL.MS 14:45 → UNDOADMOB 14:45 → LL.MS 15:08
PROVIDERS: ADMIT Emergency Medicine; ATTEND Emergency Medicine
DX: K52.9 Noninfective gastroenteritis and colitis, unspecified (principal); E86.0 Dehydration; M43.6 Torticollis; E83.42 Hypomagnesemia; J45.909 Unspecified asthma, uncomplicated
CPT/HCPCS: 36415; 70450; 80048; 80053; 81001; 83605; 83735; 85025; 96361; 96365; 96366; 96374; 96375; 99285-25; A9270-GY; G0378; J1885; J2270; J2405; J3475; J7030